=== PATIENT | male | born 1940 | race Caucasian/White ===

== ENCOUNTER 2025-04-29 13:35 | Inpatient (IN) | payer OTHER ==
[~2025-04-29] VITALS: Ht 177.8 cm; Wt 77.1 kg
[~2025-04-29 13:35] MED LIST: ADVAIR 2501 DISK W/1 IH; ANTIVERT; ASA81 MG; AYR SALINE50 M2; BACTRIM 400-801 TAB PO; CALCIFEROL8000 U/ML; CLONAZEPAM1 MG; FLUOXETINE HCL20 MG; HIBICLENS118 ML TP; IRBESARTAN-HCT1 EAC1; IRBESARTAN300 MG; LEVOTHYROXINE25 MCG; LIPITOR40 MG; MEMANTINE HCL10 MG; MIRAPEX0.25 MG; MUPIROCIN15 GM TP; OMEPRAZOLE40 MG; PROVENTIL3 ML/2.5 M IH; RESTORIL15 MG; RISPERIDONE0.5 MG; SINGULAIR10 MG PO; ZITHROMAX500 MG PO; ZYNCOF 20-400120 ML PO
[2025-04-29] MEDS ORDERED: NOREPINEPHRINE BITARTRATE 8 MG in DEXTROSE 5 % IN WATER 250 ML IV SCH (15:00)
[2025-04-29] MEDS ORDERED: 0.9 % SODIUM CHLORIDE 1,000 ML IV SCH (15:00)
[2025-04-29 15:27] LABS: BASO % 0.5 % (0.1-1.2); EOS # 0.00 (0.04-0.54); EOS % 0.0 % (0.7-7.0); LYMPH # 0.93 (1.18-3.74); LYMPH % 10.6 % (19.3-53.1); MEAN PLATELET VOLUME 9.70 fl (9.4-12.4); MONO # 1.38 (0.24-0.82); NEUT # 6.41 (1.56-6.13); NEUT % 73.0 % (34.0-71.1); RED CELL DISTRIBUTION WIDTH 12.3 % (11.6-14.4)
[2025-04-29 15:35] LABS: MONO % 15.7 % (4.7-12.5)
[2025-04-29 15:44] LABS: INR 1.23
[2025-04-29 15:57] LABS: ALT/SGPT 20 U/L (12-78); AST/SGOT 17 U/L (15-37); BILIRUBIN TOTAL 0.45 mg/dL (0.3-1.2); BUN CREA RATIO 17 (7.0-25.0); CREATININE SERUM 1.65 mg/dL (0.70-1.30); GFR 39.85; GLOBULINA 3.9 G/DL (2.4-3.5); GLUCOSE FASTING 119 mg/dL (65-100); OSMOLALITY SERUM 288 MOSM/KG (275-295)
[2025-04-29 15:58] LABS: CKMB < 1.0 NG/ML (0.5-3.6)
[2025-04-29 16:51] LABS: COVID-19 AG NEGATIVE (NEGATIVE)
[2025-04-29 17:29] LABS: URINE APPEARANCE Clear; URINE BILIRRUBIN Negative (NEGATIVE); URINE BLOOD Negative; URINE COLOR Yellow; URINE KETONE Negative (NEGATIVE); URINE LEUKOCYTE Negative; URINE NITRATE Negative; URINE PROTEIN 30 (NEGATIVE); URINE UROBILINOGEN 0.2 E.U./dl
[2025-04-29 17:31] LABS: URINE BACTERIA 88.0 uL (0.0-1933); URINE EPITHELIAL CELLS 6.1 uL (0.0-38.8); URINE RBC 3.1 uL (0.0-20.8); URINE WBC 23.3 uL (0.0-23.2)
[2025-04-29 17:43] LABS: URINE CAST 0.70 uL (0.0-1.40); URINE GLUCOSE >=1000 MG/DL (NEGATIVE)
[2025-04-29 19:12] VITALS: BP 136/85
[2025-04-29] MEDS ORDERED: VANCOMYCIN HCL 1,000 MG VIAL IV SCH (19:51)
[2025-04-29] MEDS ORDERED: FAMOTIDINE/PF 20 MG in 0.9 % SODIUM CHLORIDE 100 ML IV SCH (19:52)
[2025-04-29] MEDS ORDERED: OSELTAMIVIR PHOSPHATE 75 MG CAPSULE PO SCH (19:52)
[2025-04-29] MEDS ORDERED: AZITHROMYCIN 500 MG VIAL IV SCH (19:52)
[2025-04-29] MEDS ORDERED: LEVALBUTEROL HCL 0.63 MG/3 ML SOLUTION IH SCH (21:00)
[2025-04-29] MEDS ORDERED: levoFLOXacin IN DEXTROSE 5 % 150 ML IV SCH (22:00)
[2025-04-29] MEDS ORDERED: OSELTAMIVIR PHOSPHATE 75 MG CAPSULE PO ONE (22:01)
[2025-04-29] MEDS ORDERED: FAMOTIDINE/PF 20 MG/2 ML VIAL ONE (22:02)
[2025-04-29] MEDS ORDERED: VANCOMYCIN HCL 1,000 MG VIAL ONE (22:02)
[2025-04-29 23:16] VITALS: BP 113/70; O2SAT 97
[2025-04-30] VITALS (17 sets, daily range): BP systolic 87–127; BP diastolic 52–85; O2SAT 90–100
[2025-04-30] MEDS ORDERED: LEVALBUTEROL HCL 0.63 MG/3 ML SOLUTION IH ONE ×2 (00:50→08:11)
[2025-04-30 06:26] LABS: BASO % 0.7 % (0.1-1.2); EOS # 0.01 (0.04-0.54); EOS % 0.1 % (0.7-7.0); LYMPH # 1.01 (1.18-3.74); LYMPH % 13.2 % (19.3-53.1); MEAN PLATELET VOLUME 9.90 fl (9.4-12.4); MONO # 0.94 (0.24-0.82); NEUT # 5.60 (1.56-6.13); NEUT % 73.3 % (34.0-71.1); RED CELL DISTRIBUTION WIDTH 11.9 % (11.6-14.4)
[2025-04-30 06:31] LABS: INR 1.15
[2025-04-30 06:41] LABS: MONO % 12.3 % (4.7-12.5)
[2025-04-30 06:58] LABS: BUN CREA RATIO 21.0 (7.0-25.0); CREATININE SERUM 1.2 mg/dL (0.70-1.30); GFR 57.54; GLUCOSE FASTING 106.0 mg/dL (65-100); OSMOLALITY SERUM 286.0 MOSM/KG (275-295)
[2025-04-30] MEDS ORDERED: RINGERS SOLUTION,LACTATED 1,000 ML IV SCH (07:30)
[2025-04-30] MEDS ORDERED: NOREPINEPHRINE BITARTRATE 1 MG/ML AMPUL IV ONE (07:32)
[2025-04-30] MEDS ORDERED: BUDESONIDE 0.5 MG/2 ML AMPUL.NEB IH ONE (08:11)
[2025-04-30] MEDS ORDERED: PANTOPRAZOLE SODIUM 40 MG/VIAL VIAL IV PUSH SCH (09:00)
[2025-04-30] MEDS ORDERED: levoFLOXacin IN DEXTROSE 5 % 150 ML IV SCH (09:00)
[2025-04-30] MEDS ORDERED: VANCOMYCIN HCL 500 MG VIAL IV SCH (09:00)
[2025-04-30] MEDS ORDERED: BUDESONIDE 0.5 MG/2 ML AMPUL.NEB IH SCH (09:00)
[2025-04-30] MEDS ORDERED: OSELTAMIVIR PHOSPHATE 30MG CAP PO SCH (17:00)
[2025-04-30] MEDS ORDERED: LORazepam 2 MG/ML VIAL IV ONE ×2 (20:15→20:45)
[2025-04-30] MEDS ORDERED: VANCOMYCIN HCL 5 MG/ML REDILUIDO IV SCH (21:00)
[2025-05-01] VITALS (7 sets, daily range): BP systolic 101–135; BP diastolic 68–83; O2SAT 88–97
[2025-05-01] MEDS ORDERED: AZITHROMYCIN 500 MG VIAL IV ONE (06:50)
[2025-05-01] MEDS ORDERED: VANCOMYCIN HCL 1,000 MG VIAL ONE ×2 (06:50→21:00)
[2025-05-01 07:26] LABS: BASO % 0.5 % (0.1-1.2); EOS # 0.03 (0.04-0.54); EOS % 0.5 % (0.7-7.0); LYMPH # 1.36 (1.18-3.74); LYMPH % 24.8 % (19.3-53.1); MEAN PLATELET VOLUME 9.70 fl (9.4-12.4); MONO # 0.78 (0.24-0.82); NEUT # 3.27 (1.56-6.13); NEUT % 59.8 % (34.0-71.1); RED CELL DISTRIBUTION WIDTH 12.0 % (11.6-14.4)
[2025-05-01 07:30] LABS: MONO % 14.2 % (4.7-12.5)
[2025-05-01 07:51] LABS: ALT/SGPT 19.0 U/L (12-78); AST/SGOT 29.0 U/L (15-37); BILIRUBIN TOTAL 0.63 mg/dL (0.3-1.2); BUN CREA RATIO 20.0 (7.0-25.0); CREATININE SERUM 0.92 mg/dL (0.70-1.30); GFR 78.19; GLOBULINA 3.4 G/DL (2.4-3.5); GLUCOSE FASTING 88.0 mg/dL (65-100); OSMOLALITY SERUM 283.0 MOSM/KG (275-295)
[2025-05-01] MEDS ORDERED: HALOPERIDOL LACTATE 5 MG/ML AMPUL IM STA (08:39)
[2025-05-01] MEDS ORDERED: levoFLOXacin IN DEXTROSE 5 % 150 ML IV SCH (09:00)
[2025-05-01 11:50] LABS: INR 1.1
[2025-05-01] MEDS ORDERED: MAGNESIUM SULFATE IN WATER 50 ML IV SCH (12:00)
[2025-05-01] MEDS ORDERED: ACETAMINOPHEN 325 MG TABLET PO PRN (14:45)
[2025-05-01] MEDS ORDERED: OSELTAMIVIR PHOSPHATE 75 MG CAPSULE PO SCH (17:00)
[2025-05-01] MEDS ORDERED: CEFTRIAXONE SODIUM 2,000 MG VIAL IV SCH (17:00)
[2025-05-01] MEDS ORDERED: CARVEDILOL 3.125 MG TABLET PO SCH (17:00)
[2025-05-01] MEDS ORDERED: PATIENTS OWN MEDICATION (MEDICAMENTO EN PISO) PO SCH ×2 (17:00)
[2025-05-01] MEDS ORDERED: VANCOMYCIN HCL 1,000 MG VIAL IV SCH (21:00)
[2025-05-01] MEDS ORDERED: QUETIAPINE FUMARATE 25 MG TABLET PO SCH (21:00)
[2025-05-01] MEDS ORDERED: ATORVASTATIN CALCIUM 40 MG TABLET PO SCH (21:00)
[2025-05-01] MEDS ORDERED: HALOPERIDOL LACTATE 5 MG/ML AMPUL IM SCH (21:00)
[2025-05-01] MEDS ORDERED: TRAZODONE HCL 50 MG TABLET PO SCH (21:00)
[2025-05-02 00:47] VITALS: BP 126/76; O2SAT 94
[2025-05-02] MEDS ORDERED: LEVOTHYROXINE SODIUM 25 MCG TABLET PO SCH (06:00)
[2025-05-02] MEDS ORDERED: AZITHROMYCIN 500 MG VIAL IV ONE (07:45)
[2025-05-02] MEDS ORDERED: VANCOMYCIN HCL 1,000 MG VIAL ONE (07:45)
[2025-05-02 08:00] VITALS: BP 145/88; O2SAT 90
[2025-05-02] MEDS ORDERED: levoFLOXacin IN DEXTROSE 5 % 150 ML IV SCH (09:00)
[2025-05-02] MEDS ORDERED: SPIRONOLACTONE 25 MG TABLET PO SCH (09:00)
[2025-05-02] MEDS ORDERED: PATIENTS OWN MEDICATION (MEDICAMENTO EN PISO) PO SCH (09:00)
[2025-05-02] MEDS ORDERED: 0.9 % SODIUM CHLORIDE 1,000 ML IV SCH (10:00)
[2025-05-02 10:10] VITALS: O2SAT 90
[2025-05-02] MEDS ORDERED: MAGNESIUM SULFATE IN WATER 50 ML IV NR (12:45)
[2025-05-02 16:15] VITALS: BP 120/76; O2SAT 95
[2025-05-02] MEDS ORDERED: DOXYCYCLINE HYCLATE 100MG IV ONE (20:12)
[2025-05-02] MEDS ORDERED: DOXYCYCLINE HYCLATE 100MG IV SCH (21:00)
[2025-05-03] VITALS: BP 132/82; O2SAT 94
[2025-05-03] MEDS ORDERED: AZITHROMYCIN 500 MG VIAL IV ONE (07:26)
[2025-05-03] MEDS ORDERED: DOXYCYCLINE HYCLATE 100MG IV ONE ×2 (07:26→15:22)
[2025-05-03] MEDS ORDERED: VANCOMYCIN HCL 1,000 MG VIAL ONE (07:27)
[2025-05-03 09:23] LABS: BASO % 0.5 % (0.1-1.2); EOS # 0.18 (0.04-0.54); EOS % 2.8 % (0.7-7.0); LYMPH # 1.39 (1.18-3.74); LYMPH % 21.7 % (19.3-53.1); MEAN PLATELET VOLUME 10.40 fl (9.4-12.4); MONO # 0.77 (0.24-0.82); MONO % 12.0 % (4.7-12.5); NEUT # 4.02 (1.56-6.13); NEUT % 62.7 % (34.0-71.1); RED CELL DISTRIBUTION WIDTH 11.9 % (11.6-14.4)
[2025-05-03 10:03] LABS: ALT/SGPT 19.0 U/L (12-78); AST/SGOT 31.0 U/L (15-37); BILIRUBIN TOTAL 0.6 mg/dL (0.3-1.2); BUN CREA RATIO 21.0 (7.0-25.0); CREATININE SERUM 0.91 mg/dL (0.70-1.30); GFR 79.18; GLOBULINA 3.5 G/DL (2.4-3.5); GLUCOSE FASTING 95.0 mg/dL (65-100); OSMOLALITY SERUM 285.0 MOSM/KG (275-295)
[2025-05-03 16:37] VITALS: BP 121/75; O2SAT 95
[2025-05-04 00:17] VITALS: BP 125/86; O2SAT 94
[2025-05-04] MEDS ORDERED: DOXYCYCLINE HYCLATE 100MG IV ONE ×2 (07:02→14:54)
[2025-05-04 08:00] VITALS: BP 139/77; O2SAT 90
[2025-05-04 17:25] VITALS: BP 155/82; O2SAT 95
[2025-05-05 02:46] VITALS: BP 129/82; O2SAT 92
[2025-05-05] MEDS ORDERED: DOXYCYCLINE HYCLATE 100MG IV ONE ×2 (07:19→15:56)
[2025-05-05 08:00] VITALS: BP 127/68; O2SAT 88
[2025-05-05 08:02] LABS: BASO % 0.5 % (0.1-1.2); EOS # 0.24 (0.04-0.54); EOS % 3.0 % (0.7-7.0); LYMPH # 1.85 (1.18-3.74); LYMPH % 22.8 % (19.3-53.1); MEAN PLATELET VOLUME 10.40 fl (9.4-12.4); MONO # 0.86 (0.24-0.82); MONO % 10.6 % (4.7-12.5); NEUT # 5.08 (1.56-6.13); NEUT % 62.7 % (34.0-71.1); RED CELL DISTRIBUTION WIDTH 12.0 % (11.6-14.4)
[2025-05-05 08:41] LABS: ALT/SGPT 18.0 U/L (12-78); AST/SGOT 23.0 U/L (15-37); BILIRUBIN TOTAL 0.71 mg/dL (0.3-1.2); BUN CREA RATIO 15.0 (7.0-25.0); CREATININE SERUM 0.85 mg/dL (0.70-1.30); GFR 85.67; GLOBULINA 3.4 G/DL (2.4-3.5); GLUCOSE FASTING 91.0 mg/dL (65-100); OSMOLALITY SERUM 287.0 MOSM/KG (275-295)
[2025-05-05] MEDS ORDERED: MAGNESIUM SULFATE IN WATER 50 ML IV NR (10:20)
[2025-05-05 15:00] VITALS: BP 107/65; O2SAT 923
[2025-05-05] MEDS ORDERED: AMINO ACIDS/PROTEIN HYDROLYS 30 ML BLIST.PACK PO SCH (17:00)
[2025-05-06 01:11] VITALS: BP 107/70; O2SAT 94
[2025-05-06] MEDS ORDERED: DOXYCYCLINE HYCLATE 100MG IV ONE (07:58)
[2025-05-06 08:00] VITALS: BP 123/74; O2SAT 87
[2025-05-06] MEDS ORDERED: DOXYCYCLINE HY100 M2 PO (13:59)
== END 2025-05-06 19:49 | disposition home or self-care (01) | DRG 193 ==
LOC: ER 13:35 → ICU-2 20:47 → SURH 04-30 14:57 → MEDJ 05-01 16:27 → SURH 05-01 17:46
PROVIDERS: General Practice; Internal Medicine; Internal Medicine Infectious Disease; ADMIT Internal Medicine; ATTEND Internal Medicine
PROC: BW24ZZZ Computerized Tomography (CT Scan) of Chest and Abdomen (ICD-10-PCS; principal; 2025-04-29)
PROC: B24BYZZ Ultrasonography of Heart with Aorta using Other Contrast (ICD-10-PCS; 2025-04-30)
PROC: 4A12X4Z Monitoring of Cardiac Electrical Activity, External Approach (ICD-10-PCS; 2025-04-30)
DX: J18.9 Pneumonia, unspecified organism (principal); R65.21 Severe sepsis with septic shock; N17.9 Acute kidney failure, unspecified; J98.11 Atelectasis; J10.1 Influenza due to other identified influenza virus with other respiratory manifestations; R09.02 Hypoxemia; G30.9 Alzheimer's disease, unspecified; F02.80 Dementia in other diseases classified elsewhere, unspecified severity, without behavioral disturbance, psychotic disturbance, mood disturbance, and anxiety; A49.3 Mycoplasma infection, unspecified site